=== PATIENT | male | born 1985 | race Caucasian/White ===

== ENCOUNTER → 2016-10-31 | Outpatient (CLI) | payer BC, OTHER ==
[~2016-10-31] MED LIST: ACET325T95 PO; AZITTAB PO; HYDR-3419 PO; IBUP-1050 PO; IBUP600T44 PO
--- NOTE | 2016-10-31 09:54 | DIAGNOSTIC IMAGING REPORT ---
LEFT ELBOW 3 VIEWS CLINICAL HISTORY: Left elbow pain. FINDINGS: 3 views of the left elbow are obtained. No prior studies are available for comparison at the time of dictation. The skeletal structures are well mineralized. No fracture is seen. The joint spaces are well-maintained. There is no joint effusion. Mild medial soft tissue swelling is suggested. IMPRESSION: No acute bony abnormality is seen involving the left elbow. Electronically signed by: Robert Khan M.D. 10/31/2016 9:52 AM Dictated Date/Time: 10/31/2016 9:51 AM
== END | disposition home or self-care (01) ==
LOC: C.RDSM 14:11
PROVIDERS: ATTEND Physician Assistant
DX: M79.602 Pain in left arm (principal)

== ENCOUNTER → 2017-06-17 | Outpatient (CLI) | payer OTHER ==
[~2017-06-17] MED LIST changes: -AZITTAB PO; -IBUP600T44 PO
--- NOTE | 2017-06-17 14:41 | DIAGNOSTIC IMAGING REPORT ---
CHEST 2 VIEWS ROUTINE HISTORY: 32 years-old Male J93.9 Pneumothorax follow-up study in a patient with right-sided pneumothorax COMPARISON: Chest radiographs 05/23/2017 TECHNIQUE: PA and lateral views of the chest FINDINGS: Cardiomediastinal and hilar silhouettes are within normal limits. Subacute appearing fractures of the right fifth and sixth ribs redemonstrated with mild healing callus formation. There is adjacent mild pleural thickening. Previously noted pneumothorax on the right is no longer identified. No pleural effusion or focal airspace consolidation. Lung sharpe are clear. Surgical coils project over the left upper abdomen. IMPRESSION: 1. No pneumothorax identified. 2. Progressive healing of subacute mildly displaced right lateral rib fractures. The above report was generated using voice recognition software. It may contain grammatical, syntax or spelling errors. Electronically signed by: Christiano Daly M.D. 06/17/2017 2:39 PM Dictated Date/Time: 06/17/2017 2:37 PM
== END | disposition home or self-care (01) ==
LOC: C.RAD 14:11
PROVIDERS: ATTEND Physician Assistant
DX: J93.9 Pneumothorax, unspecified (principal)